=== PATIENT | female | born 1990 | race Two or more races ===

== ENCOUNTER 2022-07-24 03:22 | Emergency (ER) | payer SELFPAY ==
[~2022-07-24] VITALS: Ht 167.6 cm; Wt 80.0 kg
== END 2022-07-24 03:42 ==
LOC: ER 03:22
DX: F10.129 Alcohol abuse with intoxication, unspecified (principal); F17.210 Nicotine dependence, cigarettes, uncomplicated; V89.2XXA Person injured in unspecified motor-vehicle accident, traffic, initial encounter; Y93.89 Activity, other specified; Y92.89 Other specified places as the place of occurrence of the external cause; Y99.8 Other external cause status; Y90.9 Presence of alcohol in blood, level not specified